=== PATIENT | female | born 1945 | race Caucasian/White ===

== ENCOUNTER 2019-03-10 12:56 | Inpatient (IN) | payer OTHER ==
[~2019-03-10] VITALS: Ht 152.4 cm; Wt 79.8 kg
[2019-03-10 13:03] VITALS: BP_SYST 118
--- NOTE | 2019-03-10 13:03 | NUR ---
Patient to ER bed 6 to gown for evaluation. Side rails up. Report given to BARBARA Burgos.
--- NOTE | 2019-03-10 13:07 | NUR ---
Patient is awake, alert, and oriented x3. Patient is poor at verbalizing her complaint, when asked to rate her pain she just rambled without answering. Patient is complaining of neck pain x3 weeks, denies trauma to the neck.
[2019-03-10] MEDS ORDERED: NACL 0.9% 1,000 ML IV ONE (13:30)
[2019-03-10] MEDS ORDERED: KETOROLAC TROMETHAMINE 30 MG VIAL IVP ONE (14:15)
[2019-03-10 14:19] LABS: BASOPHILS % (AUTO) 0.1 % (0.0-2.0); HEMOGLOBIN 12.4 g/dL (12.0-16.0); LYMPHOCYTES # (AUTO) 0.4 K/uL (1.0-5.5); LYMPHOCYTES % (AUTO) 2.3 % (20.5-51.5); MEAN CORPUSCULAR HEMOGLOBIN 30 pg (27-31); MEAN CORPUSCULAR HGB CONC 31 % (32-36); MEAN CORPUSCULAR VOLUME 96 fL (79.0-98.0); MONOCYTES # (AUTO) 0.6 K/uL (0.0-1.0); MONOCYTES % (AUTO) 3.1 % (1.7-9.3); NEUTROPHILS # (AUTO) 17.5 K/uL (1.8-7.7); NEUTROPHILS % (AUTO) 94.5 % (40.0-70.0); RED BLOOD CELL COUNT(AUTO) 4.17 MIL/uL (4.2-6.2); RED CELL DISTRIBUTION WIDTH 17.4 % (9.0-15.0); WHITE BLOOD COUNT (AUTO) 18.5 K/uL (4.8-10.8)
--- NOTE | 2019-03-10 14:22 | NUR ---
Patient refused straight catheter. Dr. Carbajal made aware.
[2019-03-10 14:33] LABS: INR 1.4 (0.8-1.2); PROTHROMBIN TIME 13.8 SECS (9.5-12.5)
[2019-03-10 14:42] LABS: ANION GAP 12 (5-15); CALCIUM 9.6 mg/dL (8.4-11.0); CHLORIDE 103 mmol/L (98-107); CREATININE 3.32 mg/dL (0.55-1.30); GLUCOSE 109 mg/dL (70-99); POTASSIUM 3.9 mmol/L (3.5-5.1); SODIUM SERUM 137 mmol/L (136-145); UREA NITROGEN, BLOOD 25 mg/dL (8-21)
[2019-03-10] MEDS ORDERED: NS 500 ML IV ONE ×2 (14:45→17:00)
[2019-03-10] MEDS ORDERED: ASPIRIN 325 MG TABLET PO ONE (14:45)
[2019-03-10 14:48] LABS: ALBUMIN 2.7 g/dL (3.4-4.8); ASPARTATE AMINOTRANSFERASE 71 U/L (10-37); TOTAL BILIRUBIN 0.9 mg/dL (0.0-1.0)
[2019-03-10 14:49] LABS: PLATELET COUNT (AUTO) 95 K/uL (130-430)
[2019-03-10 15:10] LABS: ALANINE AMINOTRANSFERASE 16 U/L (12-78)
[2019-03-10] MEDS ORDERED: NACL 0.9% 3,000 ML IV ONE (15:15)
[2019-03-10] MEDS ORDERED: LORazepam 2 MG/ML VIAL IVP ONE ×2 (15:15)
[2019-03-10] MEDS ORDERED: LORazepam 2 MG/ML VIAL (FOR ER USE) ONE (15:28)
[2019-03-10] MEDS ORDERED: ISOS30TA6 PO (15:36)
[2019-03-10] MEDS ORDERED: LOSA50TA3 PO (15:36)
[2019-03-10] MEDS ORDERED: PRO40 PO (15:36)
[2019-03-10] MEDS ORDERED: METO25TA6 PO (15:36)
[2019-03-10] MEDS ORDERED: METH750T3 PO (15:36)
[2019-03-10] MEDS ORDERED: LIP40 PO (15:36)
[2019-03-10] MEDS ORDERED: ASCO500T20 PO (15:36)
[2019-03-10] MEDS ORDERED: VITA1CAP PO (15:36)
--- NOTE | 2019-03-10 15:36 | NUR ---
Medication reconciliation completed based upon list provided by facility.
--- NOTE | 2019-03-10 16:03 | NUR ---
Patient pulled IV. Bandage applied to site, bleeding controlled.
--- NOTE | 2019-03-10 16:10 | NUR ---
Mona julien in ED - 03/10/19 at 1746 by SDEDAFJ Verbalized need for restraints. Dr. Carbajal stated to start with bilateral soft wrist restraints.
--- NOTE | 2019-03-10 16:10 | NUR ---
Verbalized need for restraints. Dr. Carbajal stated to start with bilateral soft wrist restraints.
[2019-03-10 16:11] LABS: BILIRUBIN,URINE 1+ (NEGATIVE); BLOOD, URINE 1+ (NEGATIVE); CLARITY/URINE CLOUDY (CLEAR); COLOR,URINE AMBER (YELLOW); GLUCOSE,URINE NEGATIVE (NEGATIVE); KETONES,URINE TRACE (NEGATIVE); LEUKOCYTE ESTERASE ,URINE 3+ (NEGATIVE); NITRITE, URINE NEGATIVE (NEGATIVE); PROTEIN URINE 3+ (NEGATIVE)
--- NOTE | 2019-03-10 16:29 | NUR ---
Dr. Carbajal notified of 3 unsuccessful IV attempts, patient change of status, abnormal vital signs. Dr. Carbajal to attempt ultrasound guided IV.
[2019-03-10 16:30] LABS: BACTERIA,URINE MANY /HPF (None Seen); MUCUS,URINE None Seen /LPF (None Seen); WBC,URINE >100 /HPF (0-3)
[2019-03-10] MEDS ORDERED: CEFEPIME 1 GM in D5W 50 ML IV ONE (16:45)
--- NOTE | 2019-03-10 16:58 | NUR ---
Note anaya in ED - 03/10/19 at 1746 by SDEDAFJ Patient will be admitted to care of Dr. Mendez. Admitted to telemetry unit. Will go to room 113A. Belongings list completed. Summary report printed. Report will be given at bedside.
[2019-03-10] MEDS ORDERED: CEFEPIME 1 GM/VIAL (MAXIPIME) ONE (17:07)
--- NOTE | 2019-03-10 17:25 | NUR ---
Note aramisemily in ED - 03/10/19 at 1746 by SDEDAFJ Patient transferred in [facility] with mobile monitor, RN, EMT, and with intact and patent IV to right upper arm. Bedside report given to BARBARA Snider for continuation of care. Endorsed need for sitter, she verbalized understanding and stated there is no staffing for a sitter until 1800.
--- NOTE | 2019-03-10 17:25 | NUR ---
Patient transferred in [facility] with mobile monitor, RN, EMT, and with intact and patent IV to right upper arm. Bedside report given to BARBARA Snider for continuation of care. Endorsed need for sitter, she verbalized understanding and stated there is no staffing for a sitter until 1800.
--- NOTE | 2019-03-10 17:27 | NUR ---
ADMISSION NOTE Received patient from ER via germán, received report from CHERRY JIMENEZ. Patient admitted with diagnosis of SEPSIS,safety/fall precaution initiated.. Addendum: 03/10/19 at 1902 by Agatha Irizarry RN PT AAOX3, VERBAL, CONFUSED AT TIMES, IV CATHETER IS INFILTRATED AND NOT PATENT ON RIGHT AC, PT CAME TO UNIT WITH NO RESTRAINTS. PT IN STABLE CONDITION, NO S/S OF DISTRESS OR SOB NOTED, PT HAS NO C/O PAIN AT THIS TIME, PT ON OXYGEN 2 LITERS VIA NASAL CANNULA, SATURATION OF 98%. VSS. BED AT LOWEST POSITION, CALL LIGHT WITHIN REACH, WILL CONTINUE TO MONITOR PT FOR ANY CHANGES, FALL AND SAFETY PRECAUTIONS IN PLACE.
--- NOTE | 2019-03-10 17:30 | NUR ---
IV CATHETER PT CAME IN WITH AN IV CATHETER ON RIGHT AC, INFILTRATED AND DOES NOT FLUSH, REMOVED AND IV CATHETER INTACT, NO BLEEDING NOTED, DRESSING IN PLACE. PLACED A NEW IV CATHETER ON LEFT HAND, 22 GAUGE, SUCCESSFUL AFTER TWO ATTEMPTS. FLUSHES AND PATENT, ASEPTIC TECHNIQUE USED, PT TOLERATED.
--- NOTE | 2019-03-10 17:34 | NUR ---
contact information Flores Escamilla manager flight operations from [facility] [phone]. states patient is DNR
[2019-03-10] MEDS ORDERED: ONDANSETRON HCL 4 MG/2 ML VIAL IVP PRN (17:45)
[2019-03-10] MEDS ORDERED: LEVOFLOXACIN 500 MG/D5W 100 ML IV ONE (17:45)
[2019-03-10] MEDS ORDERED: METOCLOPRAMIDE HCL 10 MG/2 ML VIAL IVP PRN (17:45)
[2019-03-10] MEDS ORDERED: ACETAMINOPHEN 325 MG TABLET PO PRN (17:45)
[2019-03-10] MEDS ORDERED: D5NS 1,000 ML IV SCH (17:45)
[2019-03-10 17:49] VITALS: BP_SYST 104
--- NOTE | 2019-03-10 18:13 | NUR ---
Pagecarlos Mendez s/w Makenzie.
--- NOTE | 2019-03-10 18:25 | NUR ---
MD CALL DR DIAMOND MIR AND SPOKE TO HIM IN REGARDS PATIENT'S DIET, FLUIDS AND CURRENT BLOOD PRESSURE AND MENTAL STATUS, PT IS AWAKE AND ALERT, ORIENTED X3, CONFUSED AND AGITATED AT TIMES, RECEIVED AN ORDER FOR A SITTER AT BEDSIDE FOR SAFETY. NEW ORDERS RECEIVED AND CARRIED OUT, MADE MD AWARE OF FLUID RESTRICTION OF 1.8L IN PLACE FROM BOARD AND CARE, PER MD NO ORDER WHILE SHE IS STAYING HERE. Addendum: 03/10/19 at 1856 by Agatha Irizarry RN MADE AWARE THAT PT RECEIVED TWO LITERS IN ER PER REPORT FOR SEPSIS PROTOCOL AND PER MD TO CONTINUE WITH THE NEW ORDERS OF FLUID OF NS AT 100ML.
[2019-03-10] MEDS ORDERED: INSULIN REGULAR, HUMAN 100 UNITS/ML, 10 ML VIAL (humuLIN R) SUBCUT PRN (18:30)
[2019-03-10] MEDS: NACL 0.9% 1,000 ML IV SCH (18:34)
[2019-03-10] MEDS: GENTAMICIN 80 mg/100 mL NS 100 ML IV SCH (18:50)
--- NOTE | 2019-03-10 18:55 | NUR ---
CLOSING NOTE PT IN BED, PT IN STABLE CONDITION, NO S/S OF DISTRESS OR SOB NOTED, PT HAS NO C/O PAIN AT THIS TIME, PT ON OXYGEN 2 LITERS VIA NASAL CANNULA, SATURATION OF 98%. BED AT LOWEST POSITION, CALL LIGHT WITHIN REACH, WILL ENDORSE CARE OF PT TO INCOMING NURSE, FALL AND SAFETY PRECAUTIONS IN PLACE. SITTER AT BEDSIDE FOR SAFETY. PT AAOX3, CONFUSED AT TIMES.
--- NOTE | 2019-03-10 20:00 | NUR ---
Opening notes Pt awake, confused at times. VSS, afebrile. R. chest portacath dressing C/D/I. IVF NS at 100 infusing L. arm secured with kerlix. L. BKA. Redness to sacral/perineal area applied Z guard barrier cream and slight redness on Saji breast folds noted, photos taken. Sitter at bedside. Bed low, locked in position. To monitor.
--- NOTE | 2019-03-10 21:30 | NUR ---
Blood sugar/Med pass Pt awake, confused. Blood sugar checked 83. Encouraged pt to take pills with apple sauce but pt refused and pushed the spoon away. IVF infusing as ordered L. IV secured with kerlix. Sitter at bedside. To monitor.
[2019-03-10] MEDS: ATORVASTATIN 20 MG TABLET PO SCH (21:34)
--- NOTE | 2019-03-10 22:10 | NUR ---
MRSA collected and sent to lab.
[2019-03-11] VITALS (8 sets, daily range): BP systolic 93–105
--- NOTE | 2019-03-11 00:30 | NUR ---
Rounds Pt alert, awake, confused. Pt incontinent of BM. Pericare provided with SHIPPING RECEIVING MANAGER assist. Pt refused barrier cream. Sitter at bedside. To monitor.
[2019-03-11] MEDS: NACL 0.9% 1,000 ML IV SCH ×2 (02:07→16:33)
--- NOTE | 2019-03-11 02:15 | NUR ---
Rounds Pt asleep, resting in bed. No s/s distress noted. IVF infusing at ordered rate L. arm no s/s infiltration. Sitter at bedside. Bed low, locked, alarm on. To monitor.
--- NOTE | 2019-03-11 03:42 | NUR ---
CONSULTATION PAGED/CALLED Reason for Consultation: HEMODIALYSIS Person Who was Notified:MELISSA Consulting Physician: JESSICA Water Resources Program Director Specialty: Ordering Physician: DIAMOND
--- NOTE | 2019-03-11 05:11 | NUR ---
PT HAD A 4X MUSHY TYPE OF STOOL SINCE SHE CAME LAST NIGHT. I ALREADY INFORMED THE NURSE.
--- NOTE | 2019-03-11 05:30 | NUR ---
Stool Pt had only small amount of mushy stool and unable to collect. Endorsed to AM nurse.
[2019-03-11] MEDS: PANTOPRAZOLE SODIUM 40 MG TAB PO SCH (06:07)
[2019-03-11] MEDS ORDERED: D5W 1,000 ML IV PRN (06:14)
[2019-03-11] MEDS ORDERED: GLUCOSE 15 GM GEL (in 37.5 GM TUBE) PO PRN (06:15)
[2019-03-11] MEDS: DEXTROSE 50% JECT 50 ML DISP.SYRIN IVP PRN ×3 (06:30→17:36)
--- NOTE | 2019-03-11 06:45 | NUR ---
Closing notes/Hypoglycemia 0600 Pt asleep, easily arousable. Blood sugar checked 60. Pt refused am meds and juice. 0630 Hypoglycemic protocol initiated and D50 1 syringe administered per protocol L FA 22G clear and patent. 0644 Blood sugar rechecked 121. No change in mental status. To endorse to AM nurse. Addendum: 03/11/19 at 0656 by Vianey Iraheta RN Lisa Mendez.
--- NOTE | 2019-03-11 06:50 | NUR ---
sbar report received at the bedside. patient alert awake x [address]. lungs bilaterally diminished at the bases. abdomen soft and non distended. obese lady. has permacath rt upper chest. has iv access on the left forearm #22 with NS at 100cc/hr infusing on well. fall and safety precaution maintained. one to one sitter at the bedside. will continue to monitor patients status.
--- NOTE | 2019-03-11 07:49 | NUR ---
DR LOPEZ CAME AND SEE THE PATIENT.
--- NOTE | 2019-03-11 08:00 | NUR ---
dr mcadams called and informed the blood sugar low at 60mg/dl. and now 121mg.dl. no coverage given.
--- NOTE | 2019-03-11 08:25 | NUR ---
consent signed for dialysis.
--- NOTE | 2019-03-11 08:43 | NUR ---
Nutrition Update Dae Scale 17 noted. Pt admitted for sepsis. Diet: [facility] BMI: 32.2 kg/m2 RD to follow per nutrition care standards.
[2019-03-11] MEDS: METOPROLOL TARTRATE 25 MG TABLET PO SCH (08:58)
--- NOTE | 2019-03-11 09:00 | NUR ---
refused to eat. drink sips of milk only. and no more. has non productive cough noted. oxygen saturation 92% on room air.
--- NOTE | 2019-03-11 09:09 | NUR ---
narciso education site manager at the previous facility came and inquire regarding the status of the patient.
--- NOTE | 2019-03-11 09:20 | NUR ---
refused to have tylenol tablet for pain on the right leg. offered milk she refused it.
--- NOTE | 2019-03-11 10:00 | NUR ---
offered apple sauce and ice cream and jejelenao refused.
--- NOTE | 2019-03-11 11:26 | NUR ---
latest bs 60mg/dl dextrose 50 given via iv left forearm.
--- NOTE | 2019-03-11 11:30 | NUR ---
offered to have jello and vanilla pudding but still refused.
--- NOTE | 2019-03-11 12:00 | NUR ---
2 d echocardiogram done at the bedside.
--- NOTE | 2019-03-11 12:00 | NUR ---
new bs 109 mg/dl. no coverage given.
--- NOTE | 2019-03-11 12:16 | NUR ---
has 50% Ejection fraction results. no chest pain. still sinus rthyhm 74. no other ectopy noted.
--- NOTE | 2019-03-11 12:45 | NUR ---
turn to repositoned but refused just wants to stay on one side. had loose stool but smudge only. cannot send to the lab.
--- NOTE | 2019-03-11 13:50 | NUR ---
dialysis nurse called will do the procedure after 7pm tonite.
--- NOTE | 2019-03-11 14:42 | NUR ---
patient sleepy and refused to eat her lunch tray. offered 7 up drinks. slowly drinking the can.
--- NOTE | 2019-03-11 15:31 | NUR ---
Flores Escamilla Sash Repairer from [facility] came and see the patient.
--- NOTE | 2019-03-11 17:00 | NUR ---
refused to be clean up. patient had stool. buttocks area are so redness noted. apply z guard on it.
--- NOTE | 2019-03-11 17:00 | NUR ---
cleanse the perineal area and buttocks redness noted. apply z guard on it. had loose bowel x 2 brown stool. to be sent to laboratory
--- NOTE | 2019-03-11 17:45 | NUR ---
latest bs 55mg.dl. no coverage given. Dextrose 50% given via iv. flush 10cc normal saline.
--- NOTE | 2019-03-11 18:15 | NUR ---
latest bs 118mg/dl. no coverage given.
--- NOTE | 2019-03-11 18:31 | NUR ---
dr francisco came and evaluate the patient.
--- NOTE | 2019-03-11 18:32 | NUR ---
endorsed to incoming nurse Sugey JIMENEZ
--- NOTE | 2019-03-11 19:15 | NUR ---
change of shift.pt.presents affect;agitated.restless.pt.presents iv access;lt/forearm;iv fluids infusing. pt.presents lt.bka;absent prosthesis.pt.presents hx;hemo-dialysis;to be dialyized tonight;03/11/19. call light/telephone w/in the reach of the pt.
[2019-03-11] MEDS: GENTAMICIN 80 mg/100 mL NS 100 ML IV SCH (20:00)
--- NOTE | 2019-03-11 20:00 | NUR ---
pt.assessed.v/s assessed.pt.presents b/p values low.pt.presents c/o pain,nausea.to review the emar;med-list. pt.repositioned.i have apprised the pt.that snacks/beverages are available w/in the shift.pt.had requested juice have provided the juice.general status stable.respiratory status stable.@room air.call light/telephone placed w/in the reach of the pt.
--- NOTE | 2019-03-11 20:29 | NUR ---
PAGED I PAGED [phone] @ 2018 I SPOKE WITH STAN EXCHANGE DR. LOPEZ IS OIL DISTRIBUTOR TENDER @ THIS MOMENT DR. LOPEZ CALLED BACK @ 2031
--- NOTE | 2019-03-11 20:30 | NUR ---
i have assessed the blood glucose;value;=71mg/dl.i have re-iterated to the pt.to drink the apple juice. Addendum: 03/12/19 at 0503 by Rodney Boss RN h/d nshg has arrived.harjeet.hemo-dialysis therapy t be initiated.
--- NOTE | 2019-03-11 20:45 | NUR ---
:on-call dr.jandial rainesd. returned the page.i have apprised that the pt.requested pain medication: has ordered;toradol;30mg ivp q-6hrs/pain.i have apprised that the pt.presents blood glucose values: low values; has ordered change of the iv fluids constituents;to d5/ns:rate;100ml/hr.
[2019-03-11] MEDS: ATORVASTATIN 20 MG TABLET PO SCH (21:00)
--- NOTE | 2019-03-11 21:00 | NUR ---
2100p medications;gentamycin,protonix administered.
--- NOTE | 2019-03-11 22:00 | NUR ---
pt.assessed.hemo-dialysis in progress.pt.presents stable status;general,respiratory call light/telephone w/in the reach of the pt.
[2019-03-11] MEDS: D5NS 1,000 ML IV SCH (23:49)
[2019-03-11] MEDS: KETOROLAC TROMETHAMINE 30 MG VIAL IM PRN (23:52)
--- NOTE | 2019-03-12 | NUR ---
pt.assessed.v/s assessed;b/p values note;low level.no c/o pain,nausea.pt.assessed for cleanliness. iv access;intact;patent.iv fluids infusing.general status stable.respiratory status stable.call light/ telephone placed w/in the reach of the pt.
--- NOTE | 2019-03-12 02:00 | NUR ---
pt.assessed pt.presents quiescent affect;calm,somnolent.iv access;intact;patent.iv fluids infusing. pt.assessed for cleanliness.pt.repositioned.general status stable.respiratory status stable. call light/telephone placed w/in the reach of the pt.
--- NOTE | 2019-03-12 04:00 | NUR ---
pt.assessed.pt.presents quiescent affect;calm,somnolent.pt.assessed for cleanliness.pt.repositioned. general status stable.respiratory status stable.call light/telephone placed w/in the reach of the pt.
[2019-03-12] MEDS: PANTOPRAZOLE SODIUM 40 MG TAB PO SCH ×2 (05:56→06:24)
[2019-03-12] MEDS: KETOROLAC TROMETHAMINE 30 MG VIAL IM PRN (05:56)
[2019-03-12] MEDS: DEXTROSE 50% JECT 50 ML DISP.SYRIN IVP PRN (06:07)
--- NOTE | 2019-03-12 06:48 | NUR ---
pt.assessed.i have assessed the blood glucose;initial value;58mg/dl.i re-assessed the blood glucose;value;51mg/dl.i followed the hypoglycemic protocol.i have administered d50 1amp ivp.i re-assessed the blood glucose;w/in 15mis;the value:s/p d50w administration;137mg/dl. exchanged page;:on-call.awaiting 's return paged.pt.requested medication; pain.i have administered toradol:30mg ivp.to f/u re;pain medication efficacy.per pain mgx protocol.i have weighed the pt.2/t hemo-dialysis.general status stable.respiratory status stable:unlabored.call light/telephone placed w/in the reach of the pt.
--- NOTE | 2019-03-12 07:10 | NUR ---
received report at the bedside. with nite nurse. patient aaox 3. lungs bilaterally diminished breath sounds at the bases. abdomen soft and non distended. has iv access on the left forearm #22 with D5NS 100cc/hr infusing on well. vitals signs stable. afebrile. has rt upper chest permacath dry/intact. on fall/safety precaution noted. still on one to one sitter.
[2019-03-12 08:08] VITALS: BP_SYST 112
--- NOTE | 2019-03-12 08:55 | NUR ---
patient awake alert x 3. verbalized wants to eat little by little. sips of coffee and one spoon of scrambled egg. made comfortable. assists on adls. offered tea.
[2019-03-12] MEDS: METOPROLOL TARTRATE 25 MG TABLET PO SCH (09:00)
--- NOTE | 2019-03-12 09:10 | NUR ---
dr mcadams came to evaluate the patient. possible discharge to same place
[2019-03-12] MEDS: D5NS 1,000 ML IV SCH ×3 (09:13→21:42)
--- NOTE | 2019-03-12 09:30 | NUR ---
refused to eat breakfast at this time. have only sips of coffee and ice tea.
--- NOTE | 2019-03-12 10:17 | NUR ---
discontinue front desk monitor as per md order.
--- NOTE | 2019-03-12 10:18 | NUR ---
refused to be turn at this time. said later a while
--- NOTE | 2019-03-12 10:52 | NUR ---
offering a bath, refused said later.
--- NOTE | 2019-03-12 11:20 | NUR ---
on and off dozing, but screams at times. verbalized wants more to sleep.
--- NOTE | 2019-03-12 11:28 | NUR ---
latest bs 72 mg.dl offered to take the glucose tube 15 gm. to be taken po, but refused.
--- NOTE | 2019-03-12 11:42 | NUR ---
eaten ice cream at this time. drinking tea. refused to glucose po
--- NOTE | 2019-03-12 12:05 | NUR ---
latest bs 88mg.dl. no coverage given. this is after ice cream and green tea taken.
--- NOTE | 2019-03-12 12:06 | NUR ---
offered to be bath, turn and changed refused later said.
--- NOTE | 2019-03-12 12:07 | NUR ---
dr bacon came and evaluate patient. needs dialysis in am. informed needs a megace po and ativan order for agitation.
[2019-03-12] MEDS ORDERED: LORazepam 2 MG/ML VIAL IVP PRN (12:15)
[2019-03-12] MEDS ORDERED: MEGESTROL ACETATE 400 MG/10 ML UDC PO ONE (12:15)
--- NOTE | 2019-03-12 12:31 | NUR ---
patient wants to sleep more. neelimanot disturbed yet even my lunch tray is here. verbalized she wants bread with peanut butter and jelly on it and two vanilla ice cream
--- NOTE | 2019-03-12 12:40 | NUR ---
dialysis order and request given to the nursing supervisor lathing.
--- NOTE | 2019-03-12 13:32 | NUR ---
bed bath done. linen changed. redness on the perineal area and buttocks/sacral done and applied z guard on the area. turn to sides with assists.
--- NOTE | 2019-03-12 13:38 | NUR ---
request to have hot green tea.. and an vanilla ice cream
--- NOTE | 2019-03-12 13:39 | NUR ---
verbalized inappropraite words. you fuck and screaming
[2019-03-12 14:01] VITALS: BP_SYST 92
--- NOTE | 2019-03-12 15:15 | NUR ---
have two bites of sandwich peanut butter and jelly. sips of tea.
--- NOTE | 2019-03-12 15:40 | NUR ---
Dietitian Recommendations * Recommend [facility] diet, Glucerna BID (ONS provides 440 kcal/day, 20 gm protein/day) VANIA, RD Please refer to Nutrition Assessment for details. Addendum: 03/12/19 at [address] Amended: Links added.
--- NOTE | 2019-03-12 15:44 | NUR ---
Donna from [facility] came to see the patient and informed all her belongings are home including handbag and wallets with dentures and credit cards.
--- NOTE | 2019-03-12 15:47 | NUR ---
informed narciso if she could bring her dentures from home at [facility].
[2019-03-12 16:17] VITALS: BP_SYST 99
--- NOTE | 2019-03-12 16:21 | NUR ---
Dc Planning: per Donna, insights manager of [facility] # , the pt was AAOx4, had Left BKA and fractured another in July 2018 was on PT with HH agency/no name give. The pt lives at the / for 6 months and has no family. The patient only sister is disable and lives in [facility] and has no other family contact either. DCP to snf vs returning to / per md recommendation. CM to f/u with the md order.
--- NOTE | 2019-03-12 16:25 | NUR ---
resting. stable. no pain nor acute distress noted. possible transfer to another room. in 120
--- NOTE | 2019-03-12 16:48 | NUR ---
PAIR OF DENTURES BROUGHT BY NIKUNJ Addendum: 03/12/19 at 1649 by Jodee March RN HAD ONLY ONE DENTURE THE LOWER PART
--- NOTE | 2019-03-12 17:02 | NUR ---
LATEST BS 86 mg.dl. patient eating hot tea and vanilla ice cream and 3 bites of sandwich with peanut butter/jelly
--- NOTE | 2019-03-12 17:09 | NUR ---
neetu iv hanged at this time.
[2019-03-12] MEDS ORDERED: LEVOFLOXACIN 250 MG/D5W 50 ML IV SCH (18:00)
--- NOTE | 2019-03-12 18:14 | NUR ---
clean up the buttocks/sacral red and perineal area both. z guard apply on it. had small to moderate bowel movement brown color.
--- NOTE | 2019-03-12 18:16 | NUR ---
gentamicin trough drawn at this time. please follow up for results.
--- NOTE | 2019-03-12 18:22 | NUR ---
closing notes: patient alert awake x 2-3. more alert but still with some confusion noted. still had iv access on the left forearm #22 with D5NS at 100cc/hr infusing on well. had rt upper chest permacath in placed. all needs are met. breathing even and unlabored. has some sniffles noted. abdomen soft and non distended. she tried to turn by herself, when she had bowel movement and tries to clean herself, she refused us to do the cleaning on her perineal area/buttocks/sacral. redness noted applied z guard on the area. just assist the patient on turning and repositioning. still refused to have dinner yet, perhaps later. maintained fall and safety precaution. had ice cream and hot green tea. she screams a lot when touching her to assists her doing adls. left leg bka. for dialysis procedure in AM.
--- NOTE | 2019-03-12 18:43 | NUR ---
latest Gentamicin trough 2.3 critical lab result.
--- NOTE | 2019-03-12 18:45 | NUR ---
called pharmacist named Suma and will call back
--- NOTE | 2019-03-12 19:02 | NUR ---
Suma the pharmacist called said no Gentamicin iv tonite. instead she will change it to every 36 hours. do not give gentamicin iv tonite yet.
[2019-03-12] MEDS ORDERED: GENTAMICIN 80 mg/100 mL NS 100 ML IV SCH (19:30)
[2019-03-12 20:00] VITALS: BP_SYST 108
--- NOTE | 2019-03-12 20:00 | NUR ---
ASSESSMENT Pt alert/oriented to self, place. Pt on room air. IVF infusing left wrist 22ga no redness or swelling at site. Right upper chest with PermCath, dressing dry and intact. No redness noted @ site. Left lower extremity surgically absent below knee.
[2019-03-12] MEDS: MEGESTROL ACETATE 400 MG/10 ML UDC PO SCH ×2 (20:59→21:05)
[2019-03-12] MEDS: ATORVASTATIN 20 MG TABLET PO SCH (20:59)
--- NOTE | 2019-03-12 22:00 | NUR ---
TURNING Pt refused to be turned. Pt stated she can turn self. Pt instructed on the importance of being turned, she still refuses to be turn.
[2019-03-13 00:09] VITALS: BP_SYST 92
--- NOTE | 2019-03-13 00:12 | NUR ---
PATIENT RESTING: Patient restless, request no medication to help rest. No acute distress noted. Vital signs within normal range.
[2019-03-13] MEDS: D5NS 1,000 ML IV SCH ×2 (04:00→08:07)
[2019-03-13] MEDS: PANTOPRAZOLE SODIUM 40 MG TAB PO SCH (06:41)
[2019-03-13] MEDS ORDERED: GENTAMICIN 80 mg/100 mL NS 100 ML IV SCH (07:00)
--- NOTE | 2019-03-13 07:25 | NUR ---
SKIN Pt not compliant with skin care. sacral area red. Pt also not compliant with turning.
--- NOTE | 2019-03-13 07:30 | NUR ---
INITIAL NOTE RECEIVED PATIENT FOR TITLE CURATOR NURSE, PATIENT CURRENTLY RESTING IN BED, NO SIGNS OF DISTRESS NOTED, BREATHING EVEN AND UNLABORED, PATIENT HAS PERMI-CATH IN RIGHT UPPER CHEST, IV NOTED IN LEFT WRIST WITH IV FLUIDS INFUSING, NO SIGNS OF INFILTRATION NOTED, CALL CHANEY WITHIN REACH, BED IN LOWEST POSITION, SIDE RAILS UP, WILL CONTINUE TO MONITOR.
--- NOTE | 2019-03-13 07:40 | NUR ---
RN ROUNDS DIALYSIS NURSE CURRENTLY HERE SETTING UP TO START DIALYSIS, PATIENT COOPERATIVE, WILL CONTINUE TO MONITOR.
[2019-03-13 08:04] VITALS: BP_SYST 113
[2019-03-13] MEDS: METOPROLOL TARTRATE 25 MG TABLET PO SCH (08:36)
[2019-03-13 08:48] LABS: BASOPHILS % (AUTO) 0.4 % (0.0-2.0); EOSINOPHILS # (AUTO) 0.1 K/uL (0.0-0.4); EOSINOPHILS % (AUTO) 1.5 % (0.0-4.0); HEMATOCRIT 32.8 % (36-48); HEMOGLOBIN 10.5 g/dL (12.0-16.0); LYMPHOCYTES # (AUTO) 0.4 K/uL (1.0-5.5); LYMPHOCYTES % (AUTO) 6.5 % (20.5-51.5); MEAN CORPUSCULAR HEMOGLOBIN 30 pg (27-31); MEAN CORPUSCULAR HGB CONC 32 % (32-36); MEAN CORPUSCULAR VOLUME 94 fL (79.0-98.0); MONOCYTES # (AUTO) 0.2 K/uL (0.0-1.0); MONOCYTES % (AUTO) 2.5 % (1.7-9.3); NEUTROPHILS # (AUTO) 5.5 K/uL (1.8-7.7); PLATELET COUNT (AUTO) 65 K/uL (130-430); RED BLOOD CELL COUNT(AUTO) 3.48 MIL/uL (4.2-6.2); RED CELL DISTRIBUTION WIDTH 17.7 % (9.0-15.0); WHITE BLOOD COUNT (AUTO) 6.1 K/uL (4.8-10.8)
[2019-03-13 09:11] LABS: ALANINE AMINOTRANSFERASE 39 U/L (12-78); ALBUMIN 2.2 g/dL (3.4-4.8); ANION GAP 3 (5-15); ASPARTATE AMINOTRANSFERASE 42 U/L (10-37); CALCIUM 8.1 mg/dL (8.4-11.0); CHLORIDE 105 mmol/L (98-107); CREATININE 1.92 mg/dL (0.55-1.30); GLUCOSE 165 mg/dL (70-99); POTASSIUM 3.4 mmol/L (3.5-5.1); SODIUM SERUM 137 mmol/L (136-145); TOTAL BILIRUBIN 0.6 mg/dL (0.0-1.0); UREA NITROGEN, BLOOD 17 mg/dL (8-21)
--- NOTE | 2019-03-13 09:27 | NUR ---
RN ROUNDS PATIENT CURRENTLY RECEIVING DIALYSIS, PATIENT TOLERATING WELL, BP STABLE, WILL CONTINUE TO MONITOR.
[2019-03-13 09:28] LABS: NEUTROPHILS % (AUTO) 89.1 % (40.0-70.0)
[2019-03-13] MEDS ORDERED: HEPARIN SODIUM,PORCINE 5000 UNITS/ML VIAL IVP ONE (10:00)
--- NOTE | 2019-03-13 10:15 | NUR ---
PATIENT'S POTASSIUM INFORMED DR. FIELDS OF PATIENT'S POTASSIUM, NO NEW ORDERS GIVEN DIALYSIS NURSE INFORMED OF POTASSIUM LEVEL.
--- NOTE | 2019-03-13 11:06 | NUR ---
RN ROUNDS PATIENT DONE WITH DIALYSIS, PATIENT CURRENTLY RESTING IN BED, WITH EYES CLOSED, NO SIGNS OF DISTRESS NOTED, BREATHING EVEN AND UNLABORED, VITAL SIGNS STABLE, WILL CONTINUE TO MONITOR.
--- NOTE | 2019-03-13 11:38 | NUR ---
ATTENDING MD DR FIELDS WAS CALLED RE: CLARIFICATION OF IV ORDERED. SPOKE TO MARYJANE.
[2019-03-13 12:01] VITALS: BP_SYST 105
--- NOTE | 2019-03-13 12:58 | NUR ---
RN ROUNDS PATIENT CURRENTLY EATING LUNCH, NO COMPLAINTS OF PAIN OR DISCOMFORT, BREATHING EVEN AND UNLABORED, NO SIGNS OF DISTRESS NOTED, WILL CONTINUE TO MONITOR.
--- NOTE | 2019-03-13 13:51 | NUR ---
Discharge Planning: DCP faxed referral to Antonia [facility] p [phone]) with cuurent DC order with IV medications. DCP to follow up
--- NOTE | 2019-03-13 14:30 | NUR ---
DC Planning: per Antonia, the pt is accepted at [facility], assigned room # 22B, RN to report # [phone]. Antonia arranged transportation with [facility], pick and shovel man time at 6 pm. BARBARA Wolff made aware. Donna, supply manager and care transition mgr at [facility] was at bedside and received the transfer updated info by BARBARA Wolff.
[2019-03-13 15:22] VITALS: BP_SYST 113
--- NOTE | 2019-03-13 15:48 | NUR ---
RN ROUNDS PATIENT CURRENTLY RESTING IN BED WITH EYES CLOSED, PATIENT WAKES UP TO REPOSITION SELF THEN GOES BACK TO SLEEP, CALL CHANEY WITHIN REACH, BED IN LOWEST POSITION, WILL CONTINUE TO MONITOR.
[2019-03-13 16:21] VITALS: BP_SYST 113
--- NOTE | 2019-03-13 17:30 | NUR ---
RN ROUNDS PATIENT CURRENTLY EATING DINNER, NO COMPLAINTS OF PAIN OR DISCOMFORT, WILL CONTINUE TO MONITOR.
--- NOTE | 2019-03-13 17:43 | NUR ---
REPORT GIVEN RN CALLED AND GAVE REPORT TO CHRISTOPHER JIMENEZ AT ACCEPTING FACILITY INFORMED RN OF PATIENT DIALYSIS INFORMATION REQUESTED WHICH WAS GIVEN BY PATIENT'S [facility] H[facility]PICE COORDINATOR NIKUNJ SULLIVAN [phone] [address] [place] [phone]
--- NOTE | 2019-03-13 18:57 | NUR ---
ENDORSE PATIENT TO AN NURSE PATIENT ENDORSE TO AN NURSE NICOLE, PATIENT IN STABLE CONDITION, NO SIGNS OF DISTRESS NOTED, ALL NEEDS MET, CALL CHANEY WITHIN REACH, BED IN LOWEST POSITION, SIDE RAILS UP, FALL PRECAUTIONS IN PLACE.
--- NOTE | 2019-03-13 20:39 | NUR ---
D/C Patient EMT Ravindra and his teammate are transferring patient at this time via [facility]. Patient given medication reconciliation form and D/C instructions. Exit Care provided. Patient verbalized understanding. MD discussed with patient the results and treatment provided. Patient is Bedrest, she is being transported by [facility]. Patient in stable condition, ID band removed. IV catheter is sterile locked per receiving nurse request. Rx of given. Patient educated on pain management. All belongings sent with patient.
[2019-03-14] MEDS ORDERED: GENTAMICIN 80 mg/100 mL NS 100 ML IV SCH (08:00)
== END 2019-03-13 20:39 | DRG 871 ==
LOC: SED 12:56 → STU 16:57 → SMU 03-12 16:56
PROVIDERS: ADMIT Internal Medicine Hospice and Palliative Medicine; ATTEND Internal Medicine Hospice and Palliative Medicine
PROC: 5A1D70Z Performance of Urinary Filtration, Intermittent, Less than 6 Hours Per Day (ICD-10-PCS; principal; 2019-03-11)
PROC: 5A1D70Z Performance of Urinary Filtration, Intermittent, Less than 6 Hours Per Day (ICD-10-PCS; 2019-03-13)
DX: A41.9 Sepsis, unspecified organism (principal); N18.6 End stage renal disease; N39.0 Urinary tract infection, site not specified; I13.2 Hypertensive heart and chronic kidney disease with heart failure and with stage 5 chronic kidney disease, or end stage renal disease; E11.22 Type 2 diabetes mellitus with diabetic chronic kidney disease; E78.00 Pure hypercholesterolemia, unspecified; Z66 Do not resuscitate; D64.9 Anemia, unspecified; I50.9 Heart failure, unspecified; Z89.519 Acquired absence of unspecified leg below knee; Z99.2 Dependence on renal dialysis; Z88.0 Allergy status to penicillin; Z88.5 Allergy status to narcotic agent; Z79.899 Other long term (current) drug therapy; Z78.1 Physical restraint status
CPT/HCPCS: 36415; 71045; 80053; 80170-TC; 81000-TC; 82962; 83605; 84484; 85025; 85610-TC; 85730-TC; 87040-TC; 87081; 87086; 87186-TC; 90935; 90937; 93005; 93306; 96361; 96365; 96375; 99291; G0378; J0692; J1580; J1644; J1885; J1956; J2060; J2405; J7030; J7040; J7042; J7060

== ENCOUNTER 2019-09-10 14:20 | Emergency (ER) | payer OTHER ==
[~2019-09-10] VITALS: Ht 152.4 cm; Wt 79.8 kg
[~2019-09-10 14:20] MED LIST: ASCO500T20 PO; ISOS30TA6 PO; LIP40 PO; LOSA50TA3 PO; METH750T3 PO; METO25TA6 PO; PRO40 PO; VITA1CAP PO
[2019-09-10 14:32] VITALS: BP_SYST 140
--- NOTE | 2019-09-10 14:35 | NUR ---
Pt brought by BLS, Sivan&Ox4, pt presents to ER with abnormal labs, skin pink and warm, cap refill <3. VSS,respirations even and unlabored.
--- NOTE | 2019-09-10 14:46 | NUR ---
Patient to ER bed 04 to gown for evaluation. Side rails up.
--- NOTE | 2019-09-10 14:55 | NUR ---
ER Dr. Perez at bedside examining patient.
[2019-09-10 15:15] LABS: BASOPHILS % (AUTO) 0.7 % (0.0-2.0); EOSINOPHILS # (AUTO) 0.2 K/uL (0.0-0.4); EOSINOPHILS % (AUTO) 3.9 % (0.0-4.0); HEMATOCRIT 35.1 % (36-48); HEMOGLOBIN 11.7 g/dL (12.0-16.0); LYMPHOCYTES # (AUTO) 0.7 K/uL (1.0-5.5); LYMPHOCYTES % (AUTO) 16.4 % (20.5-51.5); MEAN CORPUSCULAR HEMOGLOBIN 33 pg (27-31); MEAN CORPUSCULAR HGB CONC 33 % (32-36); MEAN CORPUSCULAR VOLUME 99 fL (79.0-98.0); MONOCYTES # (AUTO) 0.3 K/uL (0.0-1.0); MONOCYTES % (AUTO) 5.7 % (1.7-9.3); NEUTROPHILS # (AUTO) 3.3 K/uL (1.8-7.7); NEUTROPHILS % (AUTO) 73.3 % (40.0-70.0); PLATELET COUNT (AUTO) 241 K/uL (130-430); RED BLOOD CELL COUNT(AUTO) 3.54 MIL/uL (4.2-6.2); RED CELL DISTRIBUTION WIDTH 15.4 % (9.0-15.0); WHITE BLOOD COUNT (AUTO) 4.5 K/uL (4.8-10.8)
[2019-09-10 15:33] LABS: ANION GAP 6 (5-15); CALCIUM 9.3 mg/dL (8.4-11.0); CHLORIDE 101 mmol/L (98-107); CREATININE 1.97 mg/dL (0.55-1.30); GLUCOSE 162 mg/dL (70-99); POTASSIUM 3.9 mmol/L (3.5-5.1); SODIUM SERUM 138 mmol/L (136-145); UREA NITROGEN, BLOOD 20 mg/dL (8-21)
[2019-09-10 15:39] LABS: ALANINE AMINOTRANSFERASE 13 U/L (12-78); ALBUMIN 3.1 g/dL (3.4-4.8); ASPARTATE AMINOTRANSFERASE 12 U/L (10-37); TOTAL BILIRUBIN 0.6 mg/dL (0.0-1.0)
[2019-09-10 15:51] LABS: PROTHROMBIN TIME 10.2 SECS (9.5-12.5)
[2019-09-10 17:30] VITALS: BP_SYST 153
--- NOTE | 2019-09-10 17:30 | NUR ---
Patient given written and verbal discharge instructions and verbalizes understanding. ER MD discussed with patient the results and treatment provided. Patient in stable condition. ID arm band removed. No Rx given. Patient educated on pain management and to follow up with PMD. Pain Scale 0/10. Opportunity for questions provided and answered.
== END 2019-09-10 17:30 | disposition home or self-care (01) ==
LOC: SED 14:20
DX: R79.9 Abnormal finding of blood chemistry, unspecified (principal); E11.22 Type 2 diabetes mellitus with diabetic chronic kidney disease; I13.2 Hypertensive heart and chronic kidney disease with heart failure and with stage 5 chronic kidney disease, or end stage renal disease; I50.9 Heart failure, unspecified; N18.6 End stage renal disease; Z99.2 Dependence on renal dialysis; E78.00 Pure hypercholesterolemia, unspecified; Z88.0 Allergy status to penicillin; Z88.5 Allergy status to narcotic agent; Z79.899 Other long term (current) drug therapy
CPT/HCPCS: 36415; 71045; 80053; 83880; 85025; 85610-TC; 85730-TC; 93005; 99285

== ENCOUNTER 2020-01-11 06:06 | Emergency (ER) | payer OTHER ==
[~2020-01-11] VITALS: Ht 152.4 cm; Wt 136.1 kg
[2020-01-11 06:08] VITALS: BP_SYST 133
[2020-01-11 06:55] LABS: BASOPHILS % (AUTO) 0.3 % (0.0-2.0); EOSINOPHILS # (AUTO) 0.1 K/uL (0.0-0.4); EOSINOPHILS % (AUTO) 0.7 % (0.0-4.0); HEMATOCRIT 46.3 % (36-48); HEMOGLOBIN 14.5 g/dL (12.0-16.0); LYMPHOCYTES # (AUTO) 0.9 K/uL (1.0-5.5); MEAN CORPUSCULAR HEMOGLOBIN 30 pg (27-31); MEAN CORPUSCULAR HGB CONC 31 % (32-36); MEAN CORPUSCULAR VOLUME 95 fL (79.0-98.0); MONOCYTES # (AUTO) 0.4 K/uL (0.0-1.0); MONOCYTES % (AUTO) 5.3 % (1.7-9.3); NEUTROPHILS # (AUTO) 6.5 K/uL (1.8-7.7); NEUTROPHILS % (AUTO) 82.7 % (40.0-70.0); PLATELET COUNT (AUTO) 174 K/uL (130-430); RED BLOOD CELL COUNT(AUTO) 4.88 MIL/uL (4.2-6.2); RED CELL DISTRIBUTION WIDTH 17.8 % (9.0-15.0); WHITE BLOOD COUNT (AUTO) 7.8 K/uL (4.8-10.8)
[2020-01-11 07:08] LABS: ANION GAP 8 (5-15); CALCIUM 8.6 mg/dL (8.4-11.0); CHLORIDE 100 mmol/L (98-107); CREATININE 3.29 mg/dL (0.55-1.30); GLUCOSE 106 mg/dL (70-99); POTASSIUM 4.3 mmol/L (3.5-5.1); SODIUM SERUM 133 mmol/L (136-145); UREA NITROGEN, BLOOD 30 mg/dL (8-21)
[2020-01-11 07:14] LABS: ALANINE AMINOTRANSFERASE 26 U/L (12-78); ALBUMIN 2.4 g/dL (3.4-4.8); ASPARTATE AMINOTRANSFERASE 27 U/L (10-37); TOTAL BILIRUBIN 1.3 mg/dL (0.0-1.0)
[2020-01-11 10:55] VITALS: BP_SYST 169
== END 2020-01-11 10:55 | disposition home or self-care (01) ==
LOC: SED 06:06
DX: M54.5 Low back pain (principal); E11.22 Type 2 diabetes mellitus with diabetic chronic kidney disease; I12.0 Hypertensive chronic kidney disease with stage 5 chronic kidney disease or end stage renal disease; N18.6 End stage renal disease; Z99.2 Dependence on renal dialysis
CPT/HCPCS: 36415; 71250-TC; 72131; 80053; 85025; 99285

== ENCOUNTER 2020-01-23 20:17 | Emergency (ER) | payer OTHER ==
[~2020-01-23] VITALS: Ht 152.4 cm; Wt 59.0 kg
[2020-01-23 20:32] VITALS: BP_SYST 136
--- NOTE | 2020-01-23 20:32 | NUR ---
Patient triaged and placed in ambulance bay. VSS and patient appears in no acute distress at this time. Accompanied by ems, awaiting available bed, and MD notified of need for MSE.
--- NOTE | 2020-01-23 21:05 | NUR ---
ER examining patient in the ambulance bay .
--- NOTE | 2020-01-23 21:15 | NUR ---
Patient to [facility] .
[2020-01-23] MEDS ORDERED: KETOROLAC TROMETHAMINE 60 MG/2 ML VIAL IM ONE (21:45)
--- NOTE | 2020-01-23 22:00 | NUR ---
Xray performed.pt tolerated well.
--- NOTE | 2020-01-23 22:32 | NUR ---
Notified Lina staff from [facility] and care the pt being discharge .
--- NOTE | 2020-01-23 22:33 | NUR ---
Patient given written and verbal discharge instructions and verbalizes understanding. ER MD discussed with patient the results and treatment provided. Patient in stable condition. ID arm band removed. Rx of Tramadol given. Patient educated on pain management and to follow up with PMD. Pain Scale 2/10. Opportunity for questions provided and answered. Medication side effect fact sheet provided.
[2020-01-23 22:34] VITALS: BP_SYST 142
== END 2020-01-23 22:33 | disposition home or self-care (01) ==
LOC: SED 20:17
DX: M25.561 Pain in right knee (principal); I13.2 Hypertensive heart and chronic kidney disease with heart failure and with stage 5 chronic kidney disease, or end stage renal disease; E11.22 Type 2 diabetes mellitus with diabetic chronic kidney disease; N18.6 End stage renal disease; I50.9 Heart failure, unspecified; Z99.2 Dependence on renal dialysis; E78.00 Pure hypercholesterolemia, unspecified; Z79.899 Other long term (current) drug therapy; Z88.0 Allergy status to penicillin; Z88.5 Allergy status to narcotic agent
CPT/HCPCS: 73560; 96372; 99283; J1885; J7030

== ENCOUNTER 2020-01-26 13:47 | Emergency (ER) | payer OTHER ==
[~2020-01-26] VITALS: Ht 162.6 cm; Wt 77.1 kg
--- NOTE | 2020-01-26 13:50 | NUR ---
Patient to ER bed 02 to gown for evaluation. Side rails up.
[2020-01-26 13:52] VITALS: BP_SYST 89
--- NOTE | 2020-01-26 14:06 | NUR ---
Dr Terrell at bedside examining patient
[2020-01-26] MEDS ORDERED: fentaNYL CITRATE/PF 100 MCG/2 ML AMP IM ONE (14:15)
--- NOTE | 2020-01-26 14:16 | NUR ---
PATIENT C/O 10/10 PAIN LEFT LOWER BACK AND LEFT BKA FENTANYL 75MG IM GIVEN RIGHT GM
--- NOTE | 2020-01-26 16:15 | NUR ---
PATIENT GIVEN DISCHARGE INSTRUCTIONS PATIENT VERBALIZED UNDERSTANDING EMT'S AT BEDSIDE TO PASS ALONG MESSAGE TO B&C ATTEMPTED TO CALL [phone] [facility] BUT RECEIVED A FAST BUSY SIGNAL GIVEN D/C INSTRUCTIONS AND SCRIPT FOR TORADOL
--- NOTE | 2020-01-26 16:35 | NUR ---
PATIENT LIFTED TO EMS [facility] AND TO AMBULANCE REPORT GIVEN TO EMS AND D/C INST WITH SCRIPT REMINDED PATIENT THAT SOMEONE NEEDS TO GET SCRIPT FILLED FOR HER AT [facility]
[2020-01-26 16:43] VITALS: BP_SYST 108
== END 2020-01-26 16:43 | disposition home or self-care (01) ==
LOC: SED 13:47
DX: G54.6 Phantom limb syndrome with pain (principal); E78.00 Pure hypercholesterolemia, unspecified; I13.2 Hypertensive heart and chronic kidney disease with heart failure and with stage 5 chronic kidney disease, or end stage renal disease; E11.22 Type 2 diabetes mellitus with diabetic chronic kidney disease; N18.6 End stage renal disease; I50.9 Heart failure, unspecified; Z99.2 Dependence on renal dialysis; Z79.899 Other long term (current) drug therapy; Z88.5 Allergy status to narcotic agent; Z88.0 Allergy status to penicillin
CPT/HCPCS: 96372; 99285; J3010